=== PATIENT | female | born 1990 | race Caucasian/White ===

== ENCOUNTER 2018-05-13 16:38 | Emergency (ER) | payer SELFPAY ==
[2018-05-13 16:53] VITALS: BP 120/74
[2018-05-13] MEDS ORDERED: HYDROcodone/ACETAMIN 5-325 MG* 1 TAB PO ONE ×2 (17:20→17:28)
[2018-05-13] MEDS ORDERED: Clindamycin CAP* 150 MG PO ONE (17:21)
--- NOTE | 2018-05-13 17:30 | UC ---
[facility] HPI - HPI Summary HPI Summary: worsening right upper dental pain and swelling worsening over the past 4 weeks, has been taking ibuprofen, has appointment for next week with dentist---istop [id number] - History of Current Complaint Chief Complaint: UCDentalProblem Stated Complaint: TOOTH ACHE Time Seen by Provider: 05/13/18 17:08 Hx Obtained From: Patient Hx Last Menstrual Period: 04/23/18 ?: No Onset/Duration: Gradual Onset, Lasting Weeks - 4, Still Present Pain Intensity: 6 Pain Scale Used: 0-10 Numeric Aggravating Factor(s): Chewing Alleviating Factor(s): Nothing Related History: Previous Dental Care on Same Tooth, Swelling - Allergies/Home Medications Allergies/Adverse Reactions: Allergies Allergy/AdvReac Type Severity Reaction Status Date / Time No Known Allergies Allergy Verified 05/13/18 16:53 PMH/Surg Hx/FS Hx/Imm Hx Previously Healthy: Yes - Surgical History Surgical History: None - Family History Known Family History: Positive: None - Social History Occupation: Employed Full-time Lives: With Family Alcohol Use: Occasionally Substance Use Type: None Smoking Status (MU): Current Every Day Smoker Review of Systems Constitutional: Negative Skin: Negative Eyes: Negative ENT: Dental Pain - right upper 2nd molar Respiratory: Negative Cardiovascular: Negative Gastrointestinal: Negative Genitourinary: Negative Motor: Negative Neurovascular: Negative Musculoskeletal: Negative Neurological: Headache Psychological: Negative Is Patient Immunocompromised?: No All Other Systems Reviewed And Are Negative: Yes Physical Exam Triage Information Reviewed: Yes Appearance: Well-Appearing, No Pain Distress, Well-Nourished Vital Signs: Initial Vital Signs Temp 98.2 F 05/13/18 16:48 Pulse 96 05/13/18 16:48 Resp 15 05/13/18 16:48 BP 120/74 05/13/18 16:48 Pulse Ox 100 05/13/18 16:48 Vital Signs Reviewed: Yes Eye Exam: Normal Eyes: Positive: Conjunctiva Clear ENT Exam: Normal ENT: Positive: Normal ENT inspection, Hearing grossly normal, Pharynx normal, Nasal congestion, TMs normal, Dental tenderness, Sinus tenderness, Uvula midline. Negative: Tonsillar swelling, Tonsillar exudate, Trismus, Muffled voice, Hoarse voice Dental Exam: Other Dental: Positive: Percussion Tenderness @, Gross Decay/Caries @, Abscess @ - right upper molar Neck exam: Normal Neck: Positive: Supple, Nontender Respiratory Exam: Normal Respiratory: Positive: Chest non-tender, No respiratory distress, No accessory muscle use Cardiovascular Exam: Normal Cardiovascular: Positive: RRR, Pulses Normal, Brisk Capillary Refill Musculoskeletal Exam: Normal Musculoskeletal: Positive: Strength Intact, ROM Intact Neurological Exam: Normal Neurological: Positive: Alert, Muscle Tone Normal Psychological Exam: Normal Skin Exam: Normal Dental Complaint Course/Dx - Course Course Of Treatment: clindamycin, hydrocodone, ibuprofen follow with dentist as planned, nicotine cesasation information - Differential Dx/Diagnosis Provider Diagnoses: dental abscess right upper molar, nicotine dependant Discharge - Sign-Out/Discharge Documenting (check all that apply): Patient Departure All imaging exams completed and their final reports reviewed: No Studies - Discharge Plan Condition: Stable Disposition: HOME Prescriptions: Clindamycin HCl 300 mg PO QID #40 capsule Hydrocodone/Acetaminophen [Hydrocodone-Acetamin 5-325 mg] 1 each PO Q6HR PRN # 16 tablet MDD 4 PRN Reason: psin Patient Education Materials: Dental Abscess (ED) Referrals: No Primary Care Phys,NOPCP [Primary Care Provider] - Additional Instructions: Follow with dentist as planned - Billing Disposition and Condition Condition: STABLE Disposition: Home
[2018-05-13] MEDS: Clindamycin CAP* 150 MG PO ONE ×2 (17:46→17:47)
== END 2018-05-13 17:54 | disposition home or self-care (01) ==
LOC: UCEAST 16:38
DX: K04.7 Periapical abscess without sinus (principal); F17.200 Nicotine dependence, unspecified, uncomplicated
CPT/HCPCS: 99203; A9270-GY; G0463